=== PATIENT | female | born 1965 | race Asian ===

== ENCOUNTER → 2017-05-14 08:11 | Emergency (ER) | payer OTHER ==
[~2017-05-14 08:11] MED LIST: Morphine INJ* 4 MG/ML 1 ML SYRINGE IV ONE; NS 0.9% 1000 ML* 1,000 ML IV ONE; Ondansetron INJ* 2 MG/ML VIAL IV ONE; Orphenadrine Citrate IV* 30 MG/ML 2 ML VIAL IV ONE; Pantoprazole IV* 40 MG IV ONE
[2017-05-14 08:55] LABS: Hematocrit 42 % (35-47); Mean Corpuscular HGB Conc 33 g/dl (31-36); Mean Corpuscular Hemoglobin 33 pg (27-31); Mean Corpuscular Volume 98 fL (80-97); Mean Platelet Volume 8 um3 (7.4-10.4); Red Blood Count 4.29 10^6/ul (4.0-5.4); Red Cell Distribution Width 13 % (10.5-15); White Blood Count 12.4 10^3/ul (3.5-10.8)
[2017-05-14 08:58] LABS: Urine Bilirubin Negative (Negative); Urine Glucose Negative (Negative); Urine Nitrite Negative (Negative)
[2017-05-14 09:11] LABS: ALT 29 U/L (7-52); Albumin 4.7 g/dL (3.2-5.2); Alkaline Phosphatase 102 U/L (34-104); Amylase 26 U/L (29-103); BUN/Creatinine Ratio 21.1 (8-20); Blood Urea Nitrogen 16 mg/dL (6-24); C Reactive Protein < 1.00 mg/L (< 5.00); CO2 Carbon Dioxide 25 mmol/L (22-32); Calcium 9.8 mg/dL (8.6-10.3); Chloride 102 mmol/L (101-111); EGFR African American 102.4 (>60); EGFR Non-African American 79.6 (>60); Globulin 3.6 g/dL (2-4); Glucose 136 mg/dL (70-100); Lipase 18 U/L (11.0-82.0); Sodium 134 mmol/L (133-145); Total Protein 8.3 g/dL (6.4-8.9)
[2017-05-14 09:13] LABS: Troponin I 0.01 ng/mL (<0.04)
[2017-05-14 09:28] LABS: Anion Gap 7 mmol/L (2-11)
--- NOTE | 2017-05-14 09:36 | RAD ---
Indication: Epigastric pain, right upper quadrant pain Real-time sonography of the right upper quadrant was performed. The liver is normal in size. It is diffusely increased in echogenicity consistent with hepatic steatosis. No focal lesions or intrahepatic duct dilatation is noted. Vague ill-defined hypoechoic area is noted adjacent to the gallbladder fossa which may represent areas of focal fatty sparing. The gallbladder demonstrates multiple echogenic foci with posterior acoustic shadowing consistent with cholelithiasis. No pericholecystic fluid or wall thickening is identified. The right kidney measures 9.8 x 4.9 x 4.7 cm with no hydronephrosis. The visualized portions of the pancreas are unremarkable. IMPRESSION: Hepatic steatosis with areas of focal fatty sparing. Cholelithiasis without biliary duct dilatation.
[2017-05-14 12:37] VITALS: BP 143/69
--- NOTE | 2017-05-14 18:54 | ED ---
Doron Dangelo Auryana, scribed for Issa Chinchilla MD on 05/14/17 at 0841 . Abdominal Pain/Female - HPI Summary HPI Summary: 51 year old female presents to the ED with RUQ/epigastric abdominal pain and flatulence starting at 03:00 AM today s/p having ice cream at 17:00 yesterday. Patient reports that the pain radiates to the right shoulder and is currently a 6/10 -previously an 8/10. She also had 1 episode of vomiting [employer]. Patient reports similar episodes within the past year - history of cholelithiasis. PMHx is significant for preDM (114 fasting glucose), hysterectomy with yaakov- oophorectomy, and right rotator cuff surgery. FHx is significant for pancreatic CA, stroke, and DM. SHx is significant for occasional alcohol use but no tobacco use. - History of Current Complaint Chief Complaint: EDAbdPain Stated Complaint: ABD PAIN / VOMITING Time Seen by Provider: 05/14/17 08:21 Hx Obtained From: Patient Hx Last Menstrual Period: HYSTER ?: No Onset/Duration: Gradual Onset, Lasting Hours - since 03:00 AM today, Still Present Timing: Hours Severity Initially: Mild Severity Currently: Moderate Pain Intensity: 8 Pain Scale Used: 0-10 Numeric Location: Discrete At: RUQ, Epigastric Radiates: Yes Radiates to: Other - right shoulder Associated Signs and Symptoms: Positive: Vomiting - x1 Simlar Episode/Dx as:: YES SEE HPI Allergies/Adverse Reactions: Allergies Allergy/AdvReac Type Severity Reaction Status Date / Time MRI contrast Allergy Itching Uncoded 05/14/17 08:14 PMH/Surg Hx/FS Hx/Imm Hx GI History: Reports: Other GI Disorders - cholelithiasis - Surgical History Surgery Procedure, Year, and Place: hysterectomy with yaakov-oophorectomy, right rotator cuff surgery Infectious Disease History: No Infectious Disease History: Denies: Traveled Outside the [place] in Last 30 Days - Family History Known Family History: Positive: Diabetes, Other - pancreatic CA, stroke - Social History Occupation: Employed Full-time Lives: With Family Alcohol Use: Occasionally Hx Substance Use: No Substance Use Type: Reports: None Hx Tobacco Use: No Smoking Status (MU): Never Smoked Tobacco Review of Systems Constitutional: Negative Negative: Fever Eyes: Negative ENT: Negative Cardiovascular: Negative Respiratory: Negative Positive: Abdominal Pain - EPIGASTRIC/RUQ, Vomiting - X1 Genitourinary: Negative Musculoskeletal: Negative Skin: Negative Neurological: Negative Psychological: Normal All Other Systems Reviewed And Are Negative: Yes Physical Exam - Summary Physical Exam Summary: VITAL SIGNS: Reviewed. GENERAL: Patient is a well-developed and nourished female who is lying comfortable in the stretcher. Patient is not in any acute respiratory distress. HEAD AND FACE: Normocephalic and atraumatic. EYES: PERRLA, EOMI x 2, No injected conjunctiva. EARS: Hearing grossly intact. Ear canals and tympanic membranes are WNL. MOUTH: Oropharynx within normal limits. NECK: Supple, trachea is midline, no adenopathy, no JVD. CHEST: Symmetric, no tenderness at palpation LUNGS: Clear to auscultation bilaterally. No wheezing or crackles. CVS: RRR, S1 and S2 present, no murmurs or gallops appreciated. ABDOMEN: Soft, LUQ and epigastric tenderness. No signs of distention. Positive bowel sounds. No rebound no guarding, and no masses palpated. No abdominal bruit or pulsations. EXTREMITIES: FROM in all major joints, no edema, no cyanosis or clubbing. NEURO: Alert and oriented x 3. No acute neurological deficits. Speech is normal. SKIN: Dry and warm Triage Information Reviewed: Yes Vital Signs On Initial Exam: Initial Vitals Temp Pulse Resp BP Pulse Ox 97.8 F 70 18 157/112 99 05/14/17 08:14 05/14/17 08:14 05/14/17 08:14 05/14/17 08:14 05/14/17 08:14 Vital Signs Reviewed: Yes Diagnostics - Vital Signs Vital Signs Temp Pulse Resp BP Pulse Ox 05/14/17 08:14 97.8 F 70 18 157/112 99 - Laboratory Result Diagrams: 05/14/17 08:48 05/14/17 08:48 Lab Statement: Any lab studies that have been ordered have been reviewed, and results considered in the medical decision making process. - EKG 10:43 EKG Interpretation: sinus bradycardia @ 53 BPM, no St elevation - Additional Comments Diagnostic Additional Comments: US GALL BLADDER - IMPRESSION: Hepatic steatosis with areas of focal fatty sparing. Cholelithiasis without biliary duct dilatation. Re-Evaluation - Re-Evaluation First Eval Re-Evaluation Time: 10:11 - discussed US results Change: Improved Abdominal Pain Fem Course/Dx - Course Course Of Treatment: 51 year old female presents to the ED with RUQ/epigastric abdominal pain and flatulence starting at 03:00 AM today s/p having ice cream at 17:00 yesterday. Patient reports that the pain radiates to the right shoulder and is currently a 6/10 -previously an 8/10. She also had 1 episode of vomiting [employer]. Patient reports similar episodes within the past year - history of cholelithiasis. PMHx is significant for preDM (114 fasting glucose), hysterectomy with yaakov-oophorectomy, and right rotator cuff surgery. FHx is significant for pancreatic CA, stroke, and DM. SHx is significant for occasional alcohol use but no tobacco use. Test results WNL except WBC 12.4 - no other significant abnormalities. UA negative for U.T.I. US GALL BLADDER IMPRESSION: Hepatic steatosis with areas of focal fatty sparing. Cholelithiasis without biliary duct dilatation. EKG- sinus bradycardia @ 53 BPM, no St elevation. In ED course, patient was given Protonix for pain and symptoms significantly improved. However, patient reports history of back pain and report mild muscle spasms. She was given Norflex and morphine, and she reported that the pain improved. She became nauseous, therefore she was given Zofran. She has now asymptomatic. She was observed in the ED for a few hours and symptoms did not return. Therefore, patient was discharge home with PCP follow up. - Diagnoses Provider Diagnoses: Epigastric abdominal pain Discharge - Discharge Plan Condition: Stable Disposition: HOME Prescriptions: Pantoprazole Sodium [Protonix] 20 mg PO DAILY #20 tab Patient Education Materials: Epigastric Pain (ED) Referrals: Non Staff,Doctor [Primary Care Provider] - 2 Days The documentation as recorded by the Doron antony Auryana accurately reflects the service I personally performed and the decisions made by me, Issa Chinchilla MD.
== END | disposition home or self-care (01) ==
LOC: ED 08:11
DX: R10.13 Epigastric pain (principal); R11.10 Vomiting, unspecified
CPT/HCPCS: 36415; 76705; 80053; 81003; 82150; 83605; 83690; 83735; 84484; 85025; 86140; 93005; 96374; 96375; 99285; J2270; J2360; J2405